=== PATIENT | female | born 2000 | race Caucasian/White ===

== ENCOUNTER 2024-02-28 01:40 | Emergency (ER) | payer BC, SELFPAY ==
[2024-02-28 01:41] VITALS: BP 128/73; PULSE 87; RESP 16; TEMP 36.7; O2SAT 98; BMI 35.3
[2024-02-28] MEDS: 0.9% Normal Saline (1000mL) 1,000 ML 999 ML IV (01:50)
--- NOTE | 2024-02-28 01:53 | EX.ED.DYSGE1 ---
HPI History of Present Illness Chief Complaint: ETOH Intox Informant: patient, spouse/S.O. and EMS Narrative Narrative: 23-year-old female drank too much alcohol tonight and was uncontrollably vomiting and had decreased level of consciousness. Was not unconscious in any point in time. The patient states that basically she has been fidgety and unable to sit still and feeling shaky and vomiting. She has had no recent illness or issues prior to drinking tonight. She denies doing any other substances or drugs. Had a miscarriage about a month ago is not currently that she knows of. Denies any abdominal pain. No hematemesis. PFSH PFSH Medical History no medical history no medical history Home Medications ?Medication ?Instructions ?Recorded ?Last Taken ?Type NK 02/28/24 Unknown History Allergy/AdvReac Type Severity Reaction Status Date / Time No Known Allergies Allergy Verified 02/28/24 01:41 Social History Smoking Status: Never smoker ROS ROS ED Constitutional Constitutional ED: Reports as per HPI and malaise; Denies chills or fever(s) Eyes Eyes: Denies change in vision or diplopia ENT ENT ED: Denies rhinorrhea or sore throat Cardiovascular Cardiovascular: Denies chest pain or palpitations Respiratory/Chest Respiratory/Chest: Denies cough or dyspnea Gastrointestinal Gastrointestinal: Reports nausea and vomiting; Denies abdominal pain or diarrhea Genitourinary Genitourinary ED: Denies dysuria or hematuria Musculoskeletal Musculoskeletal: Denies back pain or neck pain Integumentary Denies abscess or rash Neurologic Neurologic: Denies headache(s), paresthesias or weakness Psychiatric Psychiatric: Denies suicidal thoughts EXAM Physical Exam Const Vital Signs: 02/28/24 01:41 Temperature 98.1 F Temperature Source Oral Pulse Rate 87 Respiratory Rate 16 Blood Pressure 128/73 H Blood Pressure Mean 91 Pulse Ox 98 Oxygen Delivery Method Room Air Positive well nourished and well developed General Appearance ED: well developed and NAD HEENT Reports moist mucous membranes normocephalic and atraumatic Eyes PERRL and EOMs intact bilaterally Neck full ROM and supple Chest Wall inspection of chest normal and palpation of chest normal Resp normal respiratory effort and clear to auscultation bilaterally Cardio regular rate, regular rhythm and no murmurs Rate: Negative for tachycardic GI non-tender and non-distended GI Narrative: Benign abdominal exam Auscultation: normoactive bowel sounds Palpation: soft Back/Spine no CVA tenderness General Back: other FROM Extremity normal to inspection General Extremety ED: Negative for edema, pulses abnormal or tenderness General Extremity: Negative for edema or pulses abnormal Neuro oriented x3, CN's II-XII intact bilaterally and no sensory deficits noted Sensorium / Orientation: awake and alert Motor Exam: strength 5/5 throughout Psych Psych Narrative: Intoxicated, pleasant, cooperative Skin no rashes or lesions noted and no wounds MDM MDM MDM Narrative Medical decision making narrative: Patient was treated with IV fluids, Zofran. I do not think she needs a specific workup, I believe this is all secondary to being intoxicated. There is no suicidality involved here. She and family here are both reasonable and providing similar history. After tolerating oral fluids, will be stable for discharge home with family. Family member here is acting sober. Discharge Plan Triage Chief Complaint: ETOH Intox ED Provider: Anthony Mcdonough Dx/Rx/DC Orders Clinical Impression: Alcohol intoxication Instructions: ED Alcohol Intoxication Prescriptions: No Action NK Primary Care Provider: Idalia Powell,Out of Referrals: Idalia Powell,Out of [Primary Care Provider] - As Needed Activity Restrictions/Additional Instructions: Drink plenty of water tonight and tomorrow Print Language: Turkish Disposition Disposition: Home, Self Care
[2024-02-28] MEDS: Ondansetron 4 MG/2 ML Vial IV (02:18)
[2024-02-28 03:08] VITALS: BP 119/76; PULSE 76; RESP 16; TEMP 36.6; O2SAT 99
== END 2024-02-28 03:09 | disposition home or self-care (01) ==
LOC: ED 02:35
PROVIDERS: Emergency Provider Emergency Medicine; Visit Provider Emergency Medicine
DX: F10.129 Alcohol abuse with intoxication, unspecified (principal); R11.10 Vomiting, unspecified
CPT/HCPCS: 96361; 96374; 99284; A4216; J2405